=== PATIENT | male | born 1975 ===

== ENCOUNTER 2018-05-28 13:18 | Emergency (ER) | payer OTHER ==
[~2018-05-28] VITALS: Ht 170.2 cm; Wt 66.7 kg
[2018-05-28] MEDS ORDERED: DIAZEPAM10 MG PO (16:04)
== END 2018-05-28 16:42 | disposition home or self-care (01) ==
LOC: ER 13:18
DX: S39.012A Strain of muscle, fascia and tendon of lower back, initial encounter (principal); X50.0XXA Overexertion from strenuous movement or load, initial encounter; Y93.89 Activity, other specified; Y92.89 Other specified places as the place of occurrence of the external cause; Y99.8 Other external cause status